=== PATIENT | male | born 2005 | race Caucasian/White ===

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

== ENCOUNTER → 2024-09-08 | Outpatient (CLI) | payer BC ==
[~2024-09-08] MED LIST: ISOVUE-370 76% 100ML VIAL ONE
== END ==
LOC: M PLAIMG 13:54
PROVIDERS: ATTEND Nurse Practitioner Family
DX: R16.0 Hepatomegaly, not elsewhere classified (principal); K42.9 Umbilical hernia without obstruction or gangrene; N43.3 Hydrocele, unspecified
CPT/HCPCS: 74177; Q9967

== ENCOUNTER 2024-10-07 08:54 | Emergency (ER) | payer BC ==
[~2024-10-07] VITALS: Ht 172.7 cm; Wt 106.5 kg
[2024-10-07] MEDS ORDERED: AMOX875T2 (09:01)
[2024-10-07] MEDS ORDERED: RABIES IMMUNE GLOBULIN 1500 INTERNATIONAL UNIT/5ML VIAL IM.IMMUN ONE (11:40)
[2024-10-07] MEDS: RABIES IMMUNE GLOBULIN 300 INTERNATIONAL UNITS/1ML VIAL IM.IMMUN ONE (12:55)
[2024-10-07] MEDS: RABIES IMMUNE GLOBULIN 1500 INTERNATIONAL UNIT/5ML VIAL IM.IMMUN ONE (13:02)
[2024-10-07] MEDS: RABIES VACCINE HUMAN 2.5 INTERNATIONAL UNITS/ML VIAL (IMOVAX) IM ONE (13:05)
[2024-10-07 13:31] VITALS: BP 134/89; TEMP 97; O2SAT 99
== END 2024-10-07 13:33 | disposition home or self-care (01) ==
LOC: M ED 08:54
DX: S81.831A Puncture wound without foreign body, right lower leg, initial encounter (principal); Z29.14 Encounter for prophylactic rabies immune globulin; W54.0XXA Bitten by dog, initial encounter; Y92.410 Unspecified street and highway as the place of occurrence of the external cause; Y93.89 Activity, other specified; Y99.9 Unspecified external cause status; Z79.2 Long term (current) use of antibiotics; Z20.3 Contact with and (suspected) exposure to rabies

== ENCOUNTER 2024-10-10 07:37 | Emergency (ER) | payer BC ==
[~2024-10-10] VITALS: Ht 175.3 cm; Wt 104.5 kg
[~2024-10-10 07:37] MED LIST changes: +AMOX875T2; -ISOVUE-370 76% 100ML VIAL ONE
[2024-10-10 07:39] VITALS: BP 140/99; TEMP 98.6; O2SAT 100
[2024-10-10] MEDS: RABIES VACCINE HUMAN 2.5 INTERNATIONAL UNITS/ML VIAL (IMOVAX) IM ONE (08:22)
== END 2024-10-10 08:50 | disposition home or self-care (01) ==
LOC: M ED 07:37
DX: Z23 Encounter for immunization (principal); Z20.3 Contact with and (suspected) exposure to rabies; S81.831A Puncture wound without foreign body, right lower leg, initial encounter; W54.0XXA Bitten by dog, initial encounter; Y92.410 Unspecified street and highway as the place of occurrence of the external cause; Y93.89 Activity, other specified; Y99.9 Unspecified external cause status

== ENCOUNTER 2024-10-15 13:12 | Emergency (ER) | payer BC ==
[~2024-10-15] VITALS: Ht 175.3 cm; Wt 108.3 kg
[2024-10-15 13:15] VITALS: TEMP 98.5
[2024-10-15] MEDS: RABIES VACCINE HUMAN 2.5 INTERNATIONAL UNITS/ML VIAL (IMOVAX) IM ONE (14:28)
[2024-10-15 14:46] VITALS: BP 137/86; O2SAT 98
== END 2024-10-15 14:47 | disposition home or self-care (01) ==
LOC: M ED 13:12
DX: Z23 Encounter for immunization (principal); Z20.3 Contact with and (suspected) exposure to rabies

== ENCOUNTER 2024-10-21 08:22 | Emergency (ER) | payer BC, OTHER ==
[~2024-10-21] VITALS: Ht 175.3 cm; Wt 68.1 kg
[2024-10-21] MEDS: RABIES VACCINE HUMAN 2.5 INTERNATIONAL UNITS/ML VIAL (IMOVAX) IM ONE (09:11)
[2024-10-21 11:18] VITALS: BP 11/62; TEMP 97.3; O2SAT 98
== END 2024-10-21 11:19 | disposition home or self-care (01) ==
LOC: M ED 08:22
DX: Z29.14 Encounter for prophylactic rabies immune globulin (principal); Z20.3 Contact with and (suspected) exposure to rabies; K76.0 Fatty (change of) liver, not elsewhere classified; F10.10 Alcohol abuse, uncomplicated

== ENCOUNTER → 2024-12-11 | Outpatient (CLI) | payer BC, OTHER ==
[2024-12-11 18:34] LABS: ALBUMIN 4.3 G/DL (3.2-5.2); ALKALINE PHOSPHATASE 149 U/L (40-129); ALT/SGPT 119 U/L (7.0-40); AST/SGOT 49 U/L (<34); BILIRUBIN,DIRECT 0.2 MG/DL (<0.4); BILIRUBIN,TOTAL 1.1 MG/DL (0.3-1.2); IRON (FE) 65 UG/DL (65-175); PERCENT SATURATION 20.1 % (19.7-50.0); TOTAL IRON BINDING CAPACITY 324 UG/DL (250-425); TOTAL PROTEIN 7.6 G/DL (5.7-8.2)
[2024-12-11 18:36] LABS: FERRITIN 83.6 NG/ML (10.5-307.3); THYROID STIMULATING HORMONE 1.389 uIU/ML (0.55-4.78)
[2024-12-11 18:42] LABS: HEPATITIS B SURFACE ANTIBODY NEGATIVE (POSITIVE)
[2024-12-11 18:54] LABS: HEPATITIS B SURFACE ANTIGEN NEGATIVE (NEGATIVE)
[2024-12-11 19:15] LABS: HEPATITIS C VIRUS ABY INDEX 0.02 INDEX (<0.8)
[2024-12-13 03:47] LABS: T P ELECTROPHORESIS SO 7.8 g/dL (6.1-8.1)
[2024-12-13 23:38] LABS: HEPATITIS A IgG TOTAL REACTIVE (NON-REACTIVE)
[2024-12-14 12:32] LABS: ALPHA 1 ANTITRYPSIN 141 mg/dL (83-199)
[2024-12-14 14:57] LABS: ANTI-MITOCHONDRIAL ANTIBODY NEGATIVE (NEGATIVE)
[2024-12-14 15:37] LABS: TISSUE TRANSGLUTAMINASE IgA < 1.0 U/mL (<15.0)
[2024-12-15 07:31] LABS: ALPHA-1-GLOBULINS SO 0.3 g/dL (0.2-0.3); ALPHA-2-GLOBULINS SO 0.6 g/dL (0.5-0.9); BETA 2 GLOBULIN 0.4 g/dL (0.2-0.5); BETA-GLOBULIN SO 0.5 g/dL (0.4-0.6)
[2024-12-15 15:32] LABS: ANA SCREEN, IFA NEGATIVE (NEGATIVE)
[2024-12-16 03:02] LABS: LIVER-KIDNEY MICROSOMAL ABY <= 20.0 U (<=20.0)
== END ==
LOC: M WUC 14:08
PROVIDERS: ATTEND Physician Assistant
DX: R94.5 Abnormal results of liver function studies (principal); R19.4 Change in bowel habit; R16.0 Hepatomegaly, not elsewhere classified; R19.7 Diarrhea, unspecified